=== PATIENT | male | born 1980 | race American Indian/Alaskan Native ===

== ENCOUNTER 2017-01-12 17:37 | Emergency (ER) | payer BC, OTHER ==
--- NOTE | 2017-01-12 19:14 | XRay Report ---
FINAL REPORT PROCEDURE: XR ANKLE 3+V RT TECHNIQUE: RIGHT ankle radiographs, AP, lateral, and oblique views. CPT 92828 HISTORY: fall,injury,pain,swelling OF RIGHT ANKLE COMPARISON: No prior studies are available for comparison. FINDINGS: Fracture (s) and/or Dislocation(s): An acute transverse fracture is noted involving lateral malleolus without displacement.. Alignment: Normal. Joint space(s): Normal. Soft tissues: Moderate degree soft tissue swelling is identified over the lateral malleolus. Bone mineralization: Normal. Foreign bodies: None. Calcaneal spurring: None. IMPRESSION: Acute fracture lateral malleolus.
--- NOTE | 2017-01-12 20:17 | Emergency Department Report ---
ED Lower Extremity HPI - General Chief Complaint: Extremity Injury, Lower Stated Complaint: POSS SPRANG ANKLE Time Seen by Provider: 01/12/17 19:20 Source: patient Mode of arrival: Ambulatory Limitations: No Limitations - History of Present Illness Initial Comments: This is a 36-year-old male that presents to the ED complaining of left ankle pain status post twisting of ankle that has occurred today. Patient stated he was walking down the stairs and missed the first that invert twisted ankle. Patient denies any fall. Describes pain as aching with level of 10 out of 10. Patient also states he notices swelling of the right ankle. Patient denies any numbness or tingling. Denies range of motion. Patient stated he has pain while walking. Patient denies any fever, chills, chest pain, shortness of breath, headache or stiff neck. Denies any allergies or significant past medical history. Girlfriend is currently present at the bedside and stated she' ll drive the patient home after discharge. MD Complaint: ankle injury -: Gradual, This morning Injury: Ankle: Right Type of Injury: inversion Place: street/outdoors Severity: moderate Severity scale (0 -10): 10 Improves With: nothing Worsens With: weight bearing, movement, palpation Context: other (twist) Associated Symptoms: swelling, able to partially bear weight, ambulatory. denies: snap/pop sensation, numbness, tingling, unable to bear weight - Related Data Previous Rx's Medication Instructions Recorded Last Taken Type Albuterol Sulfate [Ventolin HFA] 2 puff IH Q4H PRN #1 hfa.aer.ad 02/18/14 Unknown Rx Azithromycin [Zithromax Z-JAY] 250 mg PO DAILY #6 tablet 02/18/14 Unknown Rx guaiFENesin/CODEINE [Robitussin AC] 5 ml PO Q6H PRN #8 oz 02/18/14 Unknown Rx predniSONE [Deltasone] 2 tab PO QDAY #10 tab 02/18/14 Unknown Rx Ibuprofen [Motrin 600 MG tab] 600 mg PO Q8H PRN #20 tablet 01/12/17 Unknown Rx Allergies Allergy/AdvReac Type Severity Reaction Status Date / Time No Known Allergies Allergy Verified 02/18/14 05:17 ED Review of Systems ROS: Stated complaint: POSS SPRANG ANKLE Other details as noted in HPI Constitutional: denies: chills, fever Eyes: denies: eye pain, eye discharge, vision change ENT: denies: ear pain, throat pain Respiratory: denies: cough, shortness of breath, wheezing Cardiovascular: denies: chest pain, palpitations Endocrine: no symptoms reported Gastrointestinal: denies: abdominal pain, nausea, diarrhea Genitourinary: denies: urgency, dysuria Musculoskeletal: denies: back pain, joint swelling, arthralgia Skin: denies: rash, lesions Neurological: denies: headache, weakness, paresthesias Psychiatric: denies: anxiety, depression Hematological/Lymphatic: denies: easy bleeding, easy bruising ED Past Medical Hx - Past Medical History Previous Medical History?: No - Surgical History Past Surgical History?: No - Social History Smoking Status: Never Smoker Substance Use Type: Alcohol - Medications Home Medications: Home Medications Medication Instructions Recorded Confirmed Last Taken Type Albuterol Sulfate [Ventolin HFA] 2 puff IH Q4H PRN #1 hfa.aer.ad 02/18/14 Unknown Rx Azithromycin [Zithromax Z-JAY] 250 mg PO DAILY #6 tablet 02/18/14 Unknown Rx guaiFENesin/CODEINE [Robitussin AC] 5 ml PO Q6H PRN #8 oz 02/18/14 Unknown Rx predniSONE [Deltasone] 2 tab PO QDAY #10 tab 02/18/14 Unknown Rx Ibuprofen [Motrin 600 MG tab] 600 mg PO Q8H PRN #20 tablet 01/12/17 Unknown Rx ED Physical Exam - General Limitations: No Limitations General appearance: alert, in no apparent distress - Head Head exam: Present: atraumatic, normocephalic, normal inspection - Eye Eye exam: Present: normal appearance, PERRL, EOMI. Absent: scleral icterus, conjunctival injection, nystagmus, periorbital swelling, periorbital tenderness Pupils: Present: normal accommodation - ENT ENT exam: Present: normal exam, normal orophraynx, mucous membranes moist, TM's normal bilaterally, normal external ear exam - Neck Neck exam: Present: normal inspection, full ROM. Absent: tenderness, meningismus, lymphadenopathy, thyromegaly - Respiratory Respiratory exam: Present: normal lung sounds bilaterally. Absent: respiratory distress, wheezes, rales, rhonchi, stridor, chest wall tenderness, accessory muscle use, decreased breath sounds, prolonged expiratory - Cardiovascular Cardiovascular Exam: Present: regular rate, normal rhythm, normal heart sounds. Absent: bradycardia, tachycardia, irregular rhythm, systolic murmur, diastolic murmur, rubs, gallop - GI/Abdominal GI/Abdominal exam: Present: soft, normal bowel sounds. Absent: distended, tenderness, guarding, rebound, rigid, diminished bowel sounds - Rectal Rectal exam: Present: deferred - Extremities Exam Extremities exam: Present: normal inspection, full ROM, tenderness, normal capillary refill. Absent: pedal edema, joint swelling, calf tenderness - Expanded Lower Extremity Exam Right Hip exam: Present: normal inspection, full ROM, external rotation, internal rotation, pelvic stability. Absent: tenderness, swelling, abrasion, laceration , ecchymosis, deformity, crepidus, dislocation, erythema, shortening Upper Leg exam: Present: normal inspection, full ROM. Absent: tenderness, swelling, abrasion, laceration, ecchymosis, deformity, crepidus, dislocation, erythema Knee exam: Present: normal inspection, full ROM, full knee extension. Absent: tenderness, swelling, abrasion, laceration, ecchymosis, deformity, crepidus, dislocation, erythema, effusion, pain w/ pronation/supination, posterior draw sign, pain/laxity with valgus, pain/laxity with varus Lower Leg exam: Present: normal inspection, full ROM. Absent: tenderness, swelling, abrasion, laceration, ecchymosis, deformity, crepidus, dislocation, erythema, palpable cord, Rafal's sign Ankle exam: Present: normal inspection, full ROM, tenderness, swelling. Absent : abrasion, laceration, ecchymosis, deformity, crepidus, dislocation, erythema, anterior draw sign Foot/Toe exam: Present: normal inspection, full ROM. Absent: tenderness, swelling, abrasion, laceration, ecchymosis, deformity, crepidus, dislocation, erythema, amputation, puncture wound, foreign body, calcaneal tenderness, tenderness at base of 5th metatarsal, nail avulsion, subungual hematoma Neuro vascular tendon exam: Present: no vascular compromise. Absent: pulse deficit, abnormal cap refill, motor deficit, sensory deficit, tendon deficit, extremity cold to touch, pallor, abnormal 2-point discrimination, decreased fine /light touch, foot drop, peroneal nerve deficit, significant pain with passive ROM of distal joint Gait: Positive: observed and limited by pain - Back Exam Back exam: Present: normal inspection, full ROM. Absent: tenderness, CVA tenderness (R), CVA tenderness (L), muscle spasm, paraspinal tenderness, vertebral tenderness, rash noted - Neurological Exam Neurological exam: Present: alert, oriented X3, CN II-XII intact, normal gait, reflexes normal - Psychiatric Psychiatric exam: Present: normal affect, normal mood - Skin Skin exam: Present: warm, dry, intact, normal color. Absent: rash - Other Other exam information: No deformity or open wound present. No numbness or tingling. Normal range of motion of extremity as well as the toes. ED Course Vital Signs 01/12/17 17:45 Temperature 98.5 F Pulse Rate 88 Respiratory 16 Rate Blood Pressure 111/76 O2 Sat by Pulse 100 Oximetry - Reevaluation(s) Reevaluation #1: 01/12/17 20:20 Patient is able to speak full sentences with no signs of distress. ED Lower Extremity MDM - Medical Decision Making ED course; this is a 36-year-old male that presents with right lateral malleolus fracture 1- patient was examined myself. There is no visual abnormalities or dislocations. There is an acute fracture and was dictated by Dr. Veliz. ' 2- Patient received a Nathan splint at the time of discharge as well as crutches. Patient was instructed not to weight bearing to the extremity. Patient was also instructed to follow-up with Dr. Fulton and/or another orthopedic doctor in 3-5 days or if symptoms such as numbness, tingling, unable to move extremity, fever, chills, chest pain or shortness of breath return to emergency room as soon as possible. 3- patient also received crutches and was educated by the nurse. 4- At time time of discharge, the patient does not seem toxic or ill in appearance. No acute signs of distress noted. Patient agrees to discharge treatment plan of care. No further questions noted by the patient. 5- patient was instructed to Rice therapy Critical care attestation.: If time is entered above; I have spent that time in minutes in the direct care of this critically ill patient, excluding procedure time. ED Disposition Clinical Impression: Ankle fracture Qualifiers: Encounter type: initial encounter Fracture type: closed Laterality: right Qualified Code(s): S82.891A - Other fracture of right lower leg, initial encounter for closed fracture Disposition: TO HOME OR SELFCARE Is pt being admited?: No Does the pt Need Aspirin: No Condition: Stable Instructions: Ankle Fracture (ED), Crutch Instructions (ED), RICE Therapy (ED) , Ibuprofen (By mouth) Additional Instructions: Follow-up with Dr. Fulton and/or another orthopedic doctor in 3-5 days or if symptoms such as numbness, tingling, unable to move extremity, fever, chills, chest pain or shortness of breath return to emergency room as soon as possible. No weightbearing until cleared by orthopedic doctor. Take ibuprofen as prescribed in the needed for pain. Prescriptions: Ibuprofen [Motrin 600 MG tab] 600 mg PO Q8H PRN #20 tablet PRN Reason: Pain Referrals: PRIMARY CARE, [Primary Care Provider] - 3-5 Days GAUDENCIO FULTON MD [Staff Physician] - 3-5 Days [facility] [Outside] - 3-5 Days [facility] [Outside] - 3-5 Days
[2017-01-12 21:42] VITALS: BP 117/74
== END 2017-01-12 21:42 | disposition home or self-care (01) ==
LOC: ED 17:37
DX: S82.891A Other fracture of right lower leg, initial encounter for closed fracture (principal); X50.1XXA Overexertion from prolonged static or awkward postures, initial encounter; Y93.89 Activity, other specified; Y99.9 Unspecified external cause status; Y92.410 Unspecified street and highway as the place of occurrence of the external cause

== ENCOUNTER 2018-01-30 06:11 | Emergency (ER) | payer BC ==
[2018-01-30 06:17] VITALS: BP 101/67
--- NOTE | 2018-01-30 06:55 | XRay Report ---
FINAL REPORT EXAM: XR HAND 2V RT HISTORY: pain unable to move hand TECHNIQUE: AP and lateral views of the right hand were obtained. FINDINGS: There is no evidence of fracture or dislocation. There is no evidence of radiopaque foreign body in the soft tissues. The wrist joint appears intact. IMPRESSION: Within normal limits.
--- NOTE | 2018-01-30 06:56 | XRay Report ---
FINAL REPORT EXAM: XR FOREARM RT HISTORY: cut arm with glass TECHNIQUE: Four views of the right forearm were obtained. FINDINGS: There is no evidence of fracture or dislocation. There is no evidence of radiopaque foreign body in the soft tissues. IMPRESSION: Within normal limits.
[2018-01-30] MEDS ORDERED: NACL 0.9% IR ONE (11:17)
[2018-01-30] MEDS ORDERED: MOTRIN PO ONE (11:17)
[2018-01-30] MEDS ORDERED: XYLOCAINE 1% MPF 5 mL INFILTRATI ONE (11:17)
--- NOTE | 2018-01-30 11:17 | Emergency Department Report ---
ED Laceration HPI - HPI Chief Complaint: Laceration/Recheck/Suture Stated Complaint: LAC RT ARM Time Seen by Provider: 01/30/18 10:41 Occurred When: Today Location: Upper Extremity Laceration Symptoms: Yes Pain (right forearm right forearm and hand 8/10 in a can), No Foreign Body Sensation, No Numbness, No Weakness Other History: This is a 29-year-old male here report that he is having pain to his right forearm and right hand after trying to knock on a glass and he says that the glass cut his right forearm. He reports that was between the bleeding has stopped. Tetanus is not up-to-date. Pain is 8/10 and aching worse with movement better with rest. ED Review of Systems ROS: Stated complaint: LAC RT ARM Other details as noted in HPI Constitutional: denies: chills, fever Eyes: vision change Respiratory: denies: cough, shortness of breath, wheezing Cardiovascular: denies: chest pain Gastrointestinal: denies: abdominal pain, nausea, diarrhea Musculoskeletal: denies: arthralgia Skin: denies: rash, lesions Neurological: denies: numbness, paresthesias ED Past Medical Hx - Past Medical History Previous Medical History?: No - Surgical History Past Surgical History?: No - Family History Family history: hypertension - Social History Smoking Status: Current Every Day Smoker Substance Use Type: Alcohol, Marijuana - Medications Home Medications: Home Medications Medication Instructions Recorded Confirmed Last Taken Type Albuterol Sulfate [Ventolin HFA] 2 puff IH Q4H PRN #1 hfa.aer.ad 02/18/14 Unknown Rx Azithromycin [Zithromax Z-JAY] 250 mg PO DAILY #6 tablet 02/18/14 Unknown Rx guaiFENesin/CODEINE [Robitussin AC] 5 ml PO Q6H PRN #8 oz 02/18/14 Unknown Rx predniSONE [Deltasone] 2 tab PO QDAY #10 tab 02/18/14 Unknown Rx Ibuprofen [Motrin 600 MG tab] 600 mg PO Q8H PRN #20 tablet 01/30/18 Unknown Rx Laceration Physical Exam - Exam General: Vital signs noted. No distress. Alert and acting appropriately. This is a 29-year-old male well-nourished well-developed in no acute distress. Wound Length (cm): 3 Laceration Location: Upper Extremity (left forearm laceration. 3 cm) Full Body Front + Back: 1 - 3 cm laceration, superficial to the left forearm. Linear. Skin bleeding. No areas of cellulitis. Tender to palpate. Laceration Exam: Yes Normal Distal CMS (No cce. + 2 pulses in all extremities, no neurovascular compromise), No Foreign Body, No Exposed Tendon, Vessel, or Nerve, No Tendon Injury ED Course Vital Signs 01/30/18 06:09 Temperature 99.3 F Pulse Rate 67 Respiratory 18 Rate Blood Pressure 101/67 O2 Sat by Pulse 100 Oximetry - Reevaluation(s) Reevaluation #1: 01/30/18 12:45 Patient given Motrin 800 mg emergency room for pain, Boostrix 0.5 mL to update tetanus. Refer to procedure note for details and laceration repair 01/30/18 12:45 - Laceration /Wound Repair Right Dorsal Arm Wound Location: upper extremity (right forearm) Wound's Depth, Shape: superficial, linear Wound Explored: clean Irrigated w/ Saline (ccs): 500 Betadine Prep?: Yes Anesthesia: 1% Lidocaine Volume Anesthetic (ccs): 2 Wound Debrided: moderate Wound Repaired With: sutures Suture Size/Type: 4:0 (Ethilon) Number of Sutures: 4 Layer Closure?: No Sterile Dressing Applied?: Yes ED Medical Decision Making - Radiology Data Radiology results: report reviewed X-ray of right forearm and right dictated by radiologist's report reviewed by myself. See reports below for details Patient: GABRIEL LANGLEY MR#: [id number] : 1980 Acct:[id number] Age/Sex: 37 / M ADM Date: 01/30/18 Loc: ED Attending Dr: Ordering Physician: FRANCIA BLACK MD Date of Service: 01/30/18 Procedure(s): XR forearm RT Accession Number(s): [id number] cc: FRANCIA BLACK MD Fluoro Time In Minutes: FINAL REPORT EXAM: XR FOREARM RT HISTORY: cut arm with glass TECHNIQUE: Four views of the right forearm were obtained. FINDINGS: There is no evidence of fracture or dislocation. There is no evidence of radiopaque foreign body in the soft tissues. IMPRESSION: Within normal limits. Transcribed By: RB Dictated By: GAUDENCIO ABERNATHY MD Electronically Authenticated By: GAUDENCIO ABERNATHY MD Signed Date/Time: 01/30/18647 DD/ 7 TD/TT: 01/30/18647 Findings [facility] [address] [place] [address] XRay Report Signed Patient: GABRIEL LANGLEY MR#: [id number] : 1980 Acct:[id number] Age/Sex: 37 / M ADM Date: 01/30/18 Loc: ED Attending Dr: Ordering Physician: ED MD SOFIA Date of Service: 01/30/18 Procedure(s): XR hand 2V RT Accession Number(s): [id number] cc: ED MD SOFIA Fluoro Time In Minutes: FINAL REPORT EXAM: XR HAND 2V RT HISTORY: pain unable to move hand TECHNIQUE: AP and lateral views of the right hand were obtained. FINDINGS: There is no evidence of fracture or dislocation. There is no evidence of radiopaque foreign body in the soft tissues. The wrist joint appears intact. IMPRESSION: Within normal limits. Transcribed By: RB Dictated By: GAUDENCIO ABERNATHY MD Electronically Authenticated By: GAUDENCIO ABERNATHY MD Signed Date/Time: 01/30/18647 DD/ 7 TD/TT: 01/30/18647 - Medical Decision Making This is a 37-year-old male presented to the emergency room after injuring his right forearm and hand while glass. he reports that he cut his right forearm and he is having pain to his right forearm and right hand. presented to be evaluated Patient was seen and examined by myself. Patient physical findings for 3 cm laceration to right forearm that is superficial in nature. No foreign body detected.No cce. + 2 pulses in all extremities, no neurovascular compromise otherwise physical exam is normal. He received Boostrix 0.5 mL in the emergency room times a tetanus and Motrin 800 mg by mouth for pain. X-ray of right forearm and right hand reveals normal findings. No foreign body noted. I explain x-ray report to patient along with diagnosis and treatment plan and he voiced understanding. He does not primary care physician so I discussed with him he needs to follow-up in 7-10 days to have his stitches removed and he can go to his primary care if they are able to do so and or return to emergency room to have sutures removed. He voiced understanding. Patient discharged home in stable condition, vital signs stable with febrile and referred to procedure note for details on laceration repair. Patient is pain-free and discharged home with prescription for Keflex and Motrin Critical care attestation.: If time is entered above; I have spent that time in minutes in the direct care of this critically ill patient, excluding procedure time. ED Disposition Clinical Impression: Arthralgia of multiple sites Laceration of right forearm without complication Qualifiers: Encounter type: initial encounter Qualified Code(s): S51.811A - Laceration without foreign body of right forearm, initial encounter Disposition: TO HOME OR SELFCARE Is pt being admited?: No Does the pt Need Aspirin: No Condition: Stable Instructions: Suture Care (ED), Laceration (ED), Arthralgia (ED) Additional Instructions: Please see discharge instruction in acute wound care return to emergency room or primary care physician's office in 7-10 days to have sutures removed. Keep affected area clean and dry Motrin pain and please take medication with food to prevent nausea or irritation to stomach lining Take antibiotic to prevent infection Return to the emergency room if, he developed fever, chills, increased pain and drainage from site, nausea and vomited, increase in redness and/or weakness. Prescriptions: Ibuprofen [Motrin 600 MG tab] 600 mg PO Q8H PRN #20 tablet PRN Reason: Pain Referrals: return to, emergency room and 7-10 days [Other] - 3-5 Days PRIMARY CARE, [Primary Care Provider] - 7-10 days (For suture removal) Forms: Work/School Release Form(ED)
[2018-01-30] MEDS ORDERED: XYLOCAINE 1% 20 mL ONE (11:31)
[2018-01-30] MEDS ORDERED: BOOSTRIX IM ONE (12:41)
== END 2018-01-30 13:00 | disposition home or self-care (01) ==
LOC: ED 06:11
DX: S51.811A Laceration without foreign body of right forearm, initial encounter (principal); F17.200 Nicotine dependence, unspecified, uncomplicated; F12.10 Cannabis abuse, uncomplicated; W25.XXXA Contact with sharp glass, initial encounter; Y93.89 Activity, other specified; Y99.8 Other external cause status; Y92.89 Other specified places as the place of occurrence of the external cause
CPT/HCPCS: 90471; 90715; 99283